=== PATIENT | male | born 1980 | race Caucasian/White ===

== ENCOUNTER 2023-07-07 08:03 | Emergency (ER) | payer BC, SELFPAY ==
[2023-07-07 08:10] VITALS: BP 140/89
[2023-07-07 08:48] LABS: % Basophils 0.8 % (0-2); % Eosinophils 0.8 % (0-6); % Immature Granulocytes 0.2 % (0-0.5); % Lymphocytes 29.6 % (20.5-51.1); % Neutrophils 61.6 % (42.2-75.2); Absolute Lymphocytes 1.5 10^3/uL (1.2-3.4); Absolute Monocytes 0.4 10^3/uL (0.1-0.6); Absolute Neutrophils 3.2 10^3/uL (1.4-6.5); Hematocrit 42.5 % (39.0-52.0); Hemoglobin 14.8 g/dL (13.0-18.0); Mean Corp Hgb Conc. 34.8 g/dL (33.0-37.0); Mean Corpuscular Hgb 31.7 pg (27.0-31.0); Mean Platelet Volume 10.3 fL (7.4-10.4); Nucleated Red Blood Cells % 0 % (-); Platelet Count 270 10^3/uL (130-400); Red Blood Cell Count 4.67 10^6/uL (4.70-6.10); Red Cell Dist. Width 11.8 % (11.5-14.5); White Blood Cell Count 5.2 10^3/uL (4.8-10.8)
[2023-07-07 08:55] LABS: ALT (SGPT) 22 U/L (0-50); AST (SGOT) 23 U/L (17-59); Albumin 4.6 g/dl (3.5-5.0); Alkaline Phosphatase 57 U/L (38-126); Blood Urea Nitrogen 18 mg/dl (9-20); Calcium 9.5 mg/dl (8.4-10.2); Carbon Dioxide 32 mmol/L (22-30); Chloride 103 mmol/L (98-107); Glucose 79 mg/dl (70-99); Potassium 4.2 mmol/L (3.5-5.1); Sodium 139 mmol/L (135-145); Total Bilirubin 0.6 mg/dl (0.2-1.3); Total Protein 7.1 g/dl (6.3-8.2); eGFR > 60.00
--- NOTE | 2023-07-07 09:12 | ED.MUSCINJ ---
HPI-Injury
General
Chief Complaint: Musculo-Skeletal Complaint
Source: patient
Exam Limitations: none
Time Seen by Provider: 07/07/23 09:07
Nursing documentation reviewed up to this point in time: agreed with
Travel History
Have you had any contact with someone who has COVID-19?: No
Do you have any symptoms of coronavirus? Fever > 100 degrees, chills, cough, shortness of breath, sore throat, loss of taste or smell, muscle aches, or headache?: No
History of Present Illness-Injury
Initial Injury comments:
43-year-old male with history of back pain and sciatica, was diagnosed with mono 12/2022, had head CT chest and abdomen CT found incidental thyroid nodule, turned out to be thyroid cancer with thyroidectomy 02/2023, presents stating, all this 'weird
stuff going on' ever since he had COVID, COVID May 2023. States 2 weeks ago he had left knee pain, his left calf felt tight, the symptoms spread to his left ankle, he went to his PCP Dr. Ely and was given a prescription for P/T an x-ray of
the knee. He went to [facility] urgent care 6 days ago and had a negative knee x-ray as well as a negative ultrasound for DVT. His left leg signs and symptoms are greatly subsided but past 3 days he is felt a 'warm sensation' in his right foot.
Denies SOB, CP.
Anxious about his health due to all his recent health issues
Past History
Past History
ED Past Medical History: Cancer (Thyroid 02/2023)
ED Past Surgical History: Other (Thyroidectomy)
Social History
Tobacco: Non-smoker
Alcohol: Occasional
Personal:
Living: with family
Employment: Employed
Review of Systems
Review of Systems
Allergies reviewed?: Yes
All Other Systems: ROS reviewed and negative except as documented in HPI and ROS
Constitutional: Denies fever or fatigue
EENT: Denies sore throat
Respiratory: Denies cough or trouble breathing
Cardiac: Denies chest pain
ABD/GI: Denies abdominal pain, nausea, vomiting, diarrhea or anorexia
: Denies dysuria or difficulty voiding
Musculoskeletal: Reports other (Lower extremity symptoms as noted in HPI. Today presents with 3 days of numb feeling in her right foot and sometimes in the right calf); Denies edema
Skin: Reports no symptoms
Neurological: Reports no symptoms
Phy Exam
Physical Exam
Physical Exam:
GENERAL: No acute distress. A&Ox3.
CONSTITUTIONAL: Afebrile.
EYES: PERRL, conjunctivae normal
ENMT: moist mucus membranes, Pharynx nl
RESPIRATORY: Regular respirations, nonlabored, lungs clear.
CARDIOVASCULAR: Regular rate and rhythm, no murmurs, no rubs.
GI: Soft, nontender, normal BS
MUSCULOSKELETAL: No swelling, warmth or pain with palpation of either lower extremity. Describes numb feeling inner aspect of right foot. Moves with ease. Well perfused.
SKIN: Warm, dry, pink
PSYCH: Normal mood and affect. Well kept, interactive and appropriate
NEUROLOGIC: Awake, alert and oriented. No focal neurological deficits
Injury Course
Orders/Labs/Results
Orders:
Orders
07/07/23 08:22
CMP [Comprehensive Metabolic Panel] Urgent
Complete Blood Count/With Diff Urgent
07/07/23 09:08
US Periph Venous LOWER Ext RT Urgent
Comment:
Reason For Exam: 'warm sensation'
Abnormal Lab Results
07/07/23
08:22
RBC 4.67 L 10^6/uL
(4.70-6.10)
MCH 31.7 H pg
(27.0-31.0)
Carbon Dioxide 32 H mmol/L
(22-30)
07/07/23 08:22
07/07/23 08:22
MDM/Problems Addressed
Differential Diagnosis Includes:
DVT, anxiety about health,
MDM/Problems Addressed:
43-year-old male with history of back pain and sciatica, was diagnosed with mono 12/2022, had head CT chest and abdomen CT found incidental thyroid nodule, turned out to be thyroid cancer with thyroidectomy 02/2023, presents stating, all this 'weird
stuff going on' ever since he had COVID, COVID May 2023. States 2 weeks ago he had left knee pain, his left calf felt tight, the symptoms spread to his left ankle, he went to his PCP Dr. Ely and was given a prescription for P/T an x-ray of
the knee. He went to [facility] urgent care 6 days ago and had a negative knee x-ray as well as a negative ultrasound for DVT. His left leg signs and symptoms are greatly subsided but past 3 days he is felt a 'warm sensation' in his right foot.
Denies SOB, CP.
Anxious about his health due to all his recent health issues
Afebrile, NAD
07/07/2023 1025 AM
CBC normal
CMP normal
07/07/2023 1105 AM
Ultrasound RLE, no evidence of DVT
Pt had TSH and Ca++ checked 4 days ago and were normal
Pt had a complete cardiac w/u including echo, carotid dopplers 11/2022, had head CT 11/2022
Pt reassured nothing worrisome in today's w/u. He will f/u with PCP as needed.
BP recheck 128/79
Copy of US and labs given to pt.
*Critical Care Note
Total Time (30-74mins, 75-104mins- exclusive of procedures): Not Applicable
ED Attending Note
-
Portions of this chart may have been created with voice recognition software.� Occasional wrong word or��sound alike� substitutions may have occurred due to the inherent limitations of voice recognition software.
Discharge Plan
Departure
Patient Disposition: Home (Routine Discharge)
Date of Disposition: 07/07/23
Time of Disposition: 11:08
Patient with high blood pressure during this ER visit?: No
Condition: Good
Discharge Problem:
Paresthesia of right leg
Instructions: Paresthesia (DC)
Prescriptions:
No Action
multivitamin Tablet
1 tab PO DAILY
vitamin B complex Tablet
1 tab PO DAILY
loratadine [Claritin] 10 mg Tablet
10 mg PO DAILY
[place] 3 Fish Oil
1 cap PO DAILY
Vitamin C
1 tab PO DAILY
Vitamin D3
1 cap PO DAILY
zinc
1 tab PO DAILY
Referrals:
Jhoana Prince [Other] - As needed
UNKNOWN - PT DOES,NOT KNOW [Family Provider] -
Activity Restrictions/Additional Instructions:
As we discussed, your ultrasound is normal. Your lab work is normal.
I see nothing worrisome on today's workup.
Follow-up with your doctor in 2 weeks if your symptoms have not resolved by then.
Interventions
Interventions:
*Risk Screen - Suicide Last Done: 07/07/23 09:28
*General Assessment Last Done: 07/07/23 09:28
*Neglect/Abuse Screening Last Done: 07/07/23 09:28
ED- Fall Risk Assessment Last Done: 07/07/23 09:31
*ED COVID-19 Vaccine History Last Done: 07/07/23 08:10
*Nursing Disposition Last Done: 07/07/23 11:40
ED- Cardiac Assessment Last Done: 07/07/23 09:28
ED-Musculoskeletal Assessment Last Done: 07/07/23 09:28
ED- Pulmonary Assessment Last Done: 07/07/23 09:28
ED-Peripheral Vascular Assessment Last Done: 07/07/23 09:28
ED-Skin Assessment Last Done: 07/07/23 09:28
Discharge Date and Time
Discharge Date/Time: 07/07/23 11:40
[2023-07-07 11:00] VITALS: BP 133/83
== END 2023-07-07 11:40 | disposition home or self-care (01) ==
LOC: EMR 08:03
PROVIDERS: EMERGENCY PHYSICIAN Emergency Medicine
DX: R20.2 Paresthesia of skin (principal)
CPT/HCPCS: 99284; 80053; 85025; 93971